=== PATIENT | male | born 2005 | race Two or more races ===

== ENCOUNTER 2025-08-20 06:43 | Emergency (ER) | payer OTHER ==
[~2025-08-20] VITALS: Ht 180.3 cm; Wt 70.5 kg
[2025-08-20] MEDS: NEOSPORIN OINT 0.9 GM PKT TOP ONE (10:10)
[2025-08-20 10:15] VITALS: BP 104/52; O2SAT 100
[2025-08-20 10:23] VITALS: TEMP 97.5
== END 2025-08-20 10:21 | disposition home or self-care (01) ==
LOC: M ED 06:43
DX: S60.221A Contusion of right hand, initial encounter (principal); Y92.9 Unspecified place or not applicable; Y93.9 Activity, unspecified; Y99.9 Unspecified external cause status; W10.8XXA Fall (on) (from) other stairs and steps, initial encounter; Z88.1 Allergy status to other antibiotic agents